=== PATIENT | male | born 1945 | race Two or more races ===

== ENCOUNTER 2017-05-01 13:40 | Outpatient (CLI) | payer MEDICARE, OTHER ==
[~2017-05-01 13:40] MED LIST: CENTRUM SILVER1 EAC1 PO; FISH OIL300 MG PO; LISINOPRIL5 MG PO; METFORMIN HCL500 MG PO; VITAMINS PO
--- NOTE | 2017-05-01 14:41 | Diagnostic Imaging Report ---
Indication: Cough Comparison: None 2 views of the chest obtained. Findings: There is increased reticular markings at the lung bases nonspecific. Findings could be due to scarring or atelectasis. No consolidation/airspace disease identified. Heart size is normal. Bones are osteopenic. IMPRESSION: Increase in reticular densities at the lung bases likely atelectasis or scarring.
== END 2017-05-01 15:40 | disposition home or self-care (01) ==
LOC: RAD 13:40
DX: R05 Cough (principal); M85.88 Other specified disorders of bone density and structure, other site
CPT/HCPCS: 71046